=== PATIENT | male | born 1965 | race Caucasian/White ===

== ENCOUNTER 2016-09-28 15:36 | Emergency (ER) | payer BC ==
[2016-09-28 17:07] VITALS: BP 131/64
--- NOTE | 2016-09-28 17:50 | RAD ---
Indication: Jejunostomy tube placement. Contrast was injected into the presumed jejunostomy tube which appears to be within the small bowel. IMPRESSION: Jejunostomy tube appears to be within the small bowel.
--- NOTE | 2016-10-25 11:01 | ED ---
Ugo Chambers Adam, scribed for Ilda Hartmann MD on 09/28/16 at 1600 . GI/ HPI - HPI Summary HPI Summary: Pt is a 51 year old male whose G-tube fell out of his abdomen this morning. He states that he noticed that it was out after he showered. He brought the tube with him and bandaged up the site himself. He denies any pain, irritation, or redness. Pt has had the tube in for 4 months and states that it has never fallen out before. He has it for stomach cancer which he was diagnosed with in 05/2016. He states that he has had numerous abdominal surgeries and has multiple stents. He denies any other PMHx. - History of Current Complaint Chief Complaint: EDGeneral Time Seen by Provider: 09/28/16 15:54 Stated Complaint: FEEDING TUBE FELL OUT Hx Obtained From: Patient Onset/Duration: Started Hours Ago, Atraumatic, Still Present Timing: Constant, Lasting Hours Severity: Mild Current Severity: Mild Pain Intensity: 0 Associated Signs and Symptoms: Positive: Negative Aggravating Factor(s): Nothing Alleviating Factor(s): Nothing - Additional Pertinent History Primary Care Physician: [id number] - Allergy/Home Medications Allergies/Adverse Reactions: Allergies Allergy/AdvReac Type Severity Reaction Status Date / Time No Known Allergies Allergy Verified 09/28/16 15:41 PMH/Surg Hx/FS Hx/Imm Hx Endocrine/Hematology History: Denies: Hx Diabetes Cardiovascular History: Reports: Other Cardiovascular Problems/Disorders - powerport insertion in OR 07/22/16 Denies: Hx Hypertension Respiratory History: Reports: Other Respiratory Problems/Disorders - SOBOE ( recent) GI History: Reports: Hx Ulcer - HX OF GASTRIC ULCER 05/2016 History: Denies: Hx Dialysis, Hx Renal Disease Sensory History: Reports: Hx Contacts or Glasses - reading glasses Denies: Hx Hearing Aid Opthamlomology History: Reports: Hx Contacts or Glasses - reading glasses Neurological History: Reports: Hx Seizures - 8 years ago d/t ALCOHOL Psychiatric History: Reports: Hx Substance Abuse - possible ETOH - Cancer History Cancer Type, Location and Year: Stomach 05/2016 - Surgical History Surgery Procedure, Year, and Place: tonsillectomy as a child. LAPAROTOMY FOR A GASTRIC ULCER AND [id number]-05/2016. FEEDING TUBE- [facility] 07/2016 Hx Anesthesia Reactions: No Infectious Disease History: No Infectious Disease History: Denies: Traveled Outside the [place] in Last 30 Days - Family History Known Family History: Positive: Cardiac Disease Negative: Hypertension, Diabetes - Social History Occupation: Employed Full-time Lives: Alone Alcohol Use: Rare Hx Substance Use: No Substance Use Type: Reports: None Substance Use Comment - Amount & Last Used: rarely Hx Tobacco Use: Yes Smoking Status (MU): Former Smoker Amount Used/How Often: 1/2-1PPD X 10 YEARS Have You Smoked in the Last Year: No Review of Systems Negative: Fever Positive: Other - G-tube fell out Negative: Myalgia Negative: Rash All Other Systems Reviewed And Are Negative: Yes Physical Exam Triage Information Reviewed: Yes Vital Signs On Initial Exam: Initial Vitals Temp Pulse Resp BP Pulse Ox 98.4 F 87 16 113/69 100 09/28/16 15:41 09/28/16 15:41 09/28/16 15:41 09/28/16 15:41 09/28/16 15:41 Vital Signs Reviewed: Yes Appearance: Positive: Well-Appearing, No Pain Distress Skin: Positive: Warm, Skin Color Reflects Adequate Perfusion, Dry Eyes: Positive: EOMI, DANIELLE ENT: Positive: Pharynx normal, TMs normal Neck: Positive: Supple, Nontender Respiratory/Lung Sounds: Positive: Clear to Auscultation, Breath Sounds Present. Negative: Rales, Rhonchi, Wheezes Cardiovascular: Positive: RRR. Negative: Murmur, Rub Abdomen Description: Positive: Nontender, Soft. Negative: Distended, Guarding Bowel Sounds: Positive: Present Musculoskeletal: Positive: Strength/ROM Intact. Negative: Edema Left, Edema Right Neurological: Positive: Sensory/Motor Intact, Alert, Oriented to Person Place, Time, CN Intact II-III Psychiatric: Positive: Affect/Mood Appropriate Procedures - Procedure Summary Procedure Summary: 16:30 - G-tube put in (14, not 16). Diagnostics - Vital Signs Vital Signs Temp Pulse Resp BP Pulse Ox 09/28/16 15:41 98.4 F 87 16 113/69 100 - Laboratory Lab Statement: Any lab studies that have been ordered have been reviewed, and results considered in the medical decision making process. - Radiology ABDOMEN X-RAY Radiology Interpretation Completed By: Radiologist - IMPRESSION: Jejunostomy tube appears to be within the small bowel. GIGU Course/Dx - Diagnoses Provider Diagnoses: G-tube problem Discharge - Discharge Plan Condition: Stable Disposition: HOME Patient Education Materials: Tube Feeding (GEN) Referrals: Bert Pardo MD [Primary Care Provider] - Additional Instructions: Follow up with Dr. Pardo in 2 days. The documentation as recorded by the sreeibUgo stern Adam accurately reflects the service I personally performed and the decisions made by me, Ilda Hartmann MD.
== END 2016-09-28 17:03 | disposition home or self-care (01) ==
LOC: ED 15:36
DX: K94.23 Gastrostomy malfunction (principal); Z43.1 Encounter for attention to gastrostomy; Z87.891 Personal history of nicotine dependence
CPT/HCPCS: 74000; 99282

== ENCOUNTER 2016-10-28 18:25 | Emergency (ER) | payer BC, MEDICAID ==
[2016-10-28 18:32] VITALS: BP 122/79
[2016-10-28] MEDS ORDERED: Morphine INJ* 10 MG/ML 1 ML SYRINGE IM ONE (20:44)
--- NOTE | 2016-10-30 15:28 | ED ---
Sendy Chambers Alok, scribed for Melvin Hightower MD on 10/28/16 at 2027 . GI/ HPI - HPI Summary HPI Summary: 51 y/o male present to the ED due to his G-tube falling out earlier today at 1730. Pt states tube was installed one month ago by Dr. Pardo. Pt denies any dizziness, lightheadedness, or chance of passing out. PMHx includes stomach cancer. Pt has no other medical complaints at this time. - History of Current Complaint Chief Complaint: EDGeneral Time Seen by Provider: 10/28/16 19:46 Stated Complaint: NEEDS FEED TUBE PUT BACK IN Hx Obtained From: Patient Onset/Duration: Started Hours Ago, Atraumatic, Still Present Timing: Constant Severity: Moderate Current Severity: Moderate Pain Intensity: 0 Associated Signs and Symptoms: Negative: Dizziness, Lightheadedness Aggravating Factor(s): Nothing Alleviating Factor(s): Nothing - Additional Pertinent History Primary Care Physician: JENA - Allergy/Home Medications Allergies/Adverse Reactions: Allergies Allergy/AdvReac Type Severity Reaction Status Date / Time No Known Allergies Allergy Verified 09/28/16 15:41 PMH/Surg Hx/FS Hx/Imm Hx Endocrine/Hematology History: Denies: Hx Diabetes Cardiovascular History: Reports: Other Cardiovascular Problems/Disorders - powerport insertion in OR 07/22/16 Denies: Hx Hypertension Respiratory History: Reports: Other Respiratory Problems/Disorders - SOBOE ( recent) GI History: Reports: Hx Ulcer - HX OF GASTRIC ULCER 05/2016 History: Denies: Hx Dialysis, Hx Renal Disease Sensory History: Reports: Hx Contacts or Glasses - reading glasses Denies: Hx Hearing Aid Opthamlomology History: Reports: Hx Contacts or Glasses - reading glasses Neurological History: Reports: Hx Seizures - 8 years ago d/t ALCOHOL Psychiatric History: Reports: Hx Substance Abuse - possible ETOH - Cancer History Cancer Type, Location and Year: Stomach 05/2016 - Surgical History Surgery Procedure, Year, and Place: tonsillectomy as a child. LAPAROTOMY FOR A GASTRIC ULCER AND [id number]-05/2016. FEEDING TUBE- [facility]- 07/2016 Hx Anesthesia Reactions: No Infectious Disease History: No Infectious Disease History: Denies: Traveled Outside the [place] in Last 30 Days - Family History Known Family History: Positive: Cardiac Disease Negative: Hypertension, Diabetes - Social History Occupation: Employed Full-time Lives: With Family - Brother and Sister Alcohol Use: Rare Alcohol Amount: 2-3 times per week Hx Substance Use: No Substance Use Type: Reports: None Substance Use Comment - Amount & Last Used: rarely Hx Tobacco Use: Yes Smoking Status (MU): Former Smoker Amount Used/How Often: 1/2-1PPD X 10 YEARS Have You Smoked in the Last Year: No Review of Systems Negative: Fever, Chills Negative: Erythema Negative: Sore Throat Negative: Chest Pain Negative: Shortness Of Breath, Cough Negative: Abdominal Pain, Vomiting, Nausea Negative: dysuria, hematuria Negative: Myalgia, Edema Negative: Rash Neurological: Other - Negative: Dizziness All Other Systems Reviewed And Are Negative: Yes Physical Exam - Summary Physical Exam Summary: Constitutional: Well-developed, Well-nourished, Alert. (-) Distressed Skin: Warm, Dry HENT: Normocephalic; Atraumatic Eyes: Conjunctiva normal Neck: Musculoskeletal ROM normal neck. (-) JVD, (-) Stridor, (-) Tracheal deviation Cardio: Rhythm regular, rate normal, Heart sounds normal; Intact distal pulses; The pedal pulses are 2+ and symmetric. Radial pulses are 2+ and symmetric. (-) Murmur Pulmonary/Chest wall: Effort normal. (-) Respiratory distress, (-) Wheezes, (-) Rales Abd: Soft, (-) Tenderness, (-) Distension, (-) Guarding, (-) Rebound Musculoskeletal: (-) Edema Lymph: (-) Cervical adenopathy Neuro: Alert, Oriented x3 Psych: Mood and affect Normal Triage Information Reviewed: Yes Vital Signs On Initial Exam: Initial Vitals Temp Pulse Resp BP Pulse Ox 99.0 F 85 20 122/79 100 10/28/16 18:27 10/28/16 18:27 10/28/16 18:27 10/28/16 18:27 10/28/16 18:27 Vital Signs Reviewed: Yes Procedures - Additional Procedures Additional Procedures: gastric tube replacement - 22F, 20 F FOLEYS UNABLE TO BE PLACED. GUM BOUGIE UTILIZED MILD DILATOR, PATIENT TOLERATED THIS WELL. STERILE PROCEDURES FOLLOWED. 18 F PENN SUCCESSFULLY PLACED, POSITIVE GASTRIC CONTENTS ASPIRATED, FLUSHES EASILY, AIR INJECTED AND GASTRIC SOUNDS AUSCULTATED Diagnostics - Vital Signs Vital Signs Temp Pulse Resp BP Pulse Ox 10/28/16 18:27 99.0 F 85 20 122/79 100 - Laboratory Lab Statement: Any lab studies that have been ordered have been reviewed, and results considered in the medical decision making process. GIGU Course/Dx - Diagnoses Provider Diagnoses: G-Tube replacement Discharge - Discharge Plan Condition: Stable Disposition: HOME Referrals: Bert Pardo MD [Primary Care Provider] - 2 Days Additional Instructions: Please follow up with Dr. Pardo in one or two days The documentation as recorded by the Sendy kent Alok accurately reflects the service I personally performed and the decisions made by , Melvin Hightower MD.
== END 2016-10-28 21:08 | disposition home or self-care (01) ==
LOC: ED 18:25
DX: Z93.1 Gastrostomy status (principal)
CPT/HCPCS: 96372; 99281; J2270

== ENCOUNTER 2018-02-13 15:05 | Inpatient (IN) | payer OTHER ==
[2018-02-13 16:16] LABS: ABS Basophils 0 10^3/ul (0-0.2); ABS Eosinophils 0 10^3/ul (0-0.6); ABS Lymphocytes 0.3 10^3/ul (1.0-4.8); ABS Monocytes 0.3 10^3/ul (0-0.8); ABS Neutrophils 5.5 10^3/ul (1.5-7.7); ABS Nucleated RBC 0 10^3/ul; Eosinophil % 0.1 % (0-6); Hematocrit 35 % (42-52); Hemoglobin 11.1 g/dl (14.0-18.0); Lymphocyte % 4.4 % (25-47); Mean Corpuscular HGB Conc 32 g/dl (31-36); Mean Corpuscular Hemoglobin 24 pg (27-31); Mean Corpuscular Volume 74 fL (80-94); Mean Platelet Volume 6.3 um3 (7.4-10.4); Nucleated Red Blood Cells % 0.2; Platelet Count 481 10^3/ul (150-450); Red Blood Count 4.69 10^6/ul (4.00-5.40); Red Cell Distribution Width 22 % (10.5-15); White Blood Count 6.1 10^3/ul (3.5-10.8)
--- NOTE | 2018-02-13 16:24 | RAD ---
INDICATION: Constipation COMPARISON: [facility] September 28, 2016; CT September 19, 2017 TECHNIQUE: A single view of the abdomen is submitted. FINDINGS: Bones: There are no acute bony findings. Soft tissues: There is a biliary stent.. Bowel gas pattern: There is mild gaseous distention of the colon. There is flocculent material in the left upper quadrant likely representing stool in a distended stomach. This is been noted previously. Calcifications: There are no abnormal calcifications. Other: None IMPRESSION: DISTENDED DEBRIS-FILLED STOMACH. MILD GASEOUS DISTENTION
[2018-02-13 16:30] LABS: EGFR Non-African American 121.5 (>60)
[2018-02-13] MEDS ORDERED: Iohexol 300* (CONTRAST) 10 ML SDV IV ONE (16:49)
--- NOTE | 2018-02-13 17:16 | ED ---
Abdominal Pain/Male - HPI Summary HPI Summary: Pt. is a 52-year-old male who presents to emergency department for constipation , abdominal bloating/pain, generalized weakness and feet swelling 5 days. Pt. has gastric cancer and receives chemo. Patient is followed by Dr. Pardo. Patient is on chronic narcotics for pain but states he takes daily stool softeners and laxatives. Admits to intermittent vomiting which he states is not unusual for him. Denies associated symptoms of fever, chills, cough, shortness of breath, chest pain. Patient states he was passing gas yesterday but is not today. Also notes difficulty urinating. Symptoms are moderate in severity. No current modifying factors. 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 Pain Intensity: 9 - Allergies/Home Medications Allergies/Adverse Reactions: Allergies Allergy/AdvReac Type Severity Reaction Status Date / Time No Known Allergies Allergy Verified 02/13/18 15:11 PMH/Surg Hx/FS Hx/Imm Hx Previously Healthy: Yes Endocrine/Hematology History: Denies: Hx Diabetes Cardiovascular History: Reports: Other Cardiovascular Problems/Disorders - powerport insertion in OR 07/22/16 Denies: Hx Hypertension Respiratory History: Reports: Other Respiratory Problems/Disorders - SOBOE ( recent) GI History: Reports: Hx Ulcer - HX OF GASTRIC ULCER 05/2016 History: Denies: Hx Dialysis, Hx Renal Disease Sensory History: Reports: Hx Contacts or Glasses - reading glasses Denies: Hx Hearing Aid Opthamlomology History: Reports: Hx Contacts or Glasses - reading glasses Neurological History: Reports: Hx Seizures - 8 years ago d/t ALCOHOL Psychiatric History: Reports: Hx Substance Abuse - possible ETOH - Cancer History Cancer Type, Location and Year: Stomach [place]-05/2016 - Surgical History Surgery Procedure, Year, and Place: TONSILLECTOMY. LAPAROTOMY FOR A GASTRIC ULCER AND H-[id number]-05/2016. FEEDING TUBE- [facility]- 07/2016 Hx Anesthesia Reactions: No Infectious Disease History: No Infectious Disease History: Denies: Traveled Outside the [place] in Last 30 Days - Family History Known Family History: Positive: Cardiac Disease Negative: Hypertension, Diabetes - Social History Alcohol Use: Weekly Alcohol Amount: 2-3 times per week Hx Substance Use: No Substance Use Type: Reports: None Substance Use Comment - Amount & Last Used: occasionally Hx Tobacco Use: Yes Smoking Status (MU): Former Smoker Amount Used/How Often: 1/2-1PPD X 10 YEARS Have You Smoked in the Last Year: No Review of Systems Constitutional: Negative Negative: Fever, Chills Eyes: Negative ENT: Negative Cardiovascular: Negative Negative: Palpitations, Chest Pain Respiratory: Negative Negative: Shortness Of Breath, Cough Positive: Abdominal Pain, Other - Constipation. Negative: Vomiting, Diarrhea, Nausea Positive: urgency Positive: Other - Bilateral feet edema Skin: Negative Positive: Weakness - generalized. Negative: Headache, Paresthesia, Numbness, Syncope All Other Systems Reviewed And Are Negative: Yes Physical Exam Triage Information Reviewed: Yes Vital Signs On Initial Exam: Initial Vitals Temp Pulse Resp BP Pulse Ox 99.6 F 100 16 135/94 99 02/13/18 15:09 02/13/18 15:09 02/13/18 15:09 02/13/18 15:09 02/13/18 15:09 Vital Signs Reviewed: Yes Appearance: Positive: Thin - Pt. lying in bed in NAD. Malnourished appearing. Brother present. Skin: Positive: Warm, Dry Head/Face: Positive: Normal Head/Face Inspection Eyes: Positive: Normal Neck: Positive: Supple. Negative: Nuchal Rigidity Respiratory/Lung Sounds: Positive: Clear to Auscultation, Breath Sounds Present Cardiovascular: Positive: Normal, RRR Abdomen Description: Positive: Other: - Abdomen is distended and diffusely tender throughout. Numerous incisional scars noted. Rectal exam performed with tech. No stool noted in rectal vault. Musculoskeletal: Positive: Other - Moderate edema noted to bilateral feet. No erythema or wounds. Palpable pulses. No calf swelling. Neurological: Positive: Normal, CN Intact II-III Psychiatric: Positive: Affect/Mood Appropriate Diagnostics - Vital Signs Vital Signs Temp Pulse Resp BP Pulse Ox 02/13/18 15:29 93 144/106 98 02/13/18 15:09 99.6 F 100 16 135/94 99 - Laboratory Lab Results: Lab Results 02/13/18 02/13/18 Range/Units 15:37 15:37 WBC 6.1 (3.5-10.8) 10^3/ul RBC 4.69 (4.00-5.40) 10^6/ul Hgb 11.1 L (14.0-18.0) g/dl Hct 35 L (42-52) % MCV 74 L (80-94) fL MCH 24 L (27-31) pg MCHC 32 (31-36) g/dl RDW 22 H (10.5-15) % Plt Count 481 H (150-450) 10^3/ul MPV 6.3 L (7.4-10.4) um3 Neut % (Auto) 89.9 H (38-83) % Lymph % (Auto) 4.4 L (25-47) % [place] % (Auto) 5.3 (0-7) % Eos % (Auto) 0.1 (0-6) % Baso % (Auto) 0.3 (0-2) % Absolute Neuts (auto) 5.5 (1.5-7.7) 10^3/ul Absolute Lymphs (auto) 0.3 L (1.0-4.8) 10^3/ul Absolute Monos (auto) 0.3 (0-0.8) 10^3/ul Absolute Eos (auto) 0 (0-0.6) 10^3/ul Absolute Basos (auto) 0 (0-0.2) 10^3/ul Absolute Nucleated RBC 0 10^3/ul Nucleated RBC % 0.2 Sodium 133 L (135-145) mmol/L Potassium 4.4 (3.5-5.0) mmol/L Chloride 96 L (101-111) mmol/L Carbon Dioxide 27 (22-32) mmol/L Anion Gap 10 (2-11) mmol/L BUN 13 (6-24) mg/dL Creatinine 0.68 (0.67-1.17) mg/dL Est GFR ( Amer) 147.0 (>60) Est GFR (Non-Af Amer) 121.5 (>60) BUN/Creatinine Ratio 19.1 (8-20) Glucose 112 H (70-100) mg/dL Calcium 9.3 (8.6-10.3) mg/dL Total Bilirubin 0.50 (0.2-1.0) mg/dL AST 21 (13-39) U/L ALT 11 (7-52) U/L Alkaline Phosphatase 115 H (34-104) U/L Total Protein 6.9 (6.4-8.9) g/dL Albumin 3.3 (3.2-5.2) g/dL Globulin 3.6 (2-4) g/dL Albumin/Globulin Ratio 0.9 L (1-3) Result Diagrams: 02/13/18 15:37 02/13/18 15:37 Lab Statement: Any lab studies that have been ordered have been reviewed, and results considered in the medical decision making process. Abdominal Pain Fem Course/Dx - Course Course Of Treatment: Pt. presenting for constipation, abd. pain/bloating, and feet swelling. Temp 99.6F, HR 100bpm, BP 135/94. Will obtain basic labs, urine and abd. xray. No stool impaction noted on exam. Xray reviewed by myself and Dr. Claros and shows dilated bowels without constipation. [place] for possible obstruction or other etiology for pt.'s pain and bloating. Will obtain CT scan. Labs are at pt.'s baseline. Pt. will be signed out to Hazel Figueroa PA-C for CT results and appropriate disposition. - Diagnoses Differential Diagnosis/HQI/PQRI: Bowel Obstruction, Constipation, Urinary Tract Infection Provider Diagnoses: Abdominal bloating, Constipation Discharge - Sign-Out/Discharge Documenting (check all that apply): Sign-Out Patient Signing out patient TO: Hazel Figueroa - Discharge Plan Referrals: Bert Pardo MD [Primary Care Provider] -
--- NOTE | 2018-02-13 19:13 | RAD ---
INDICATION: Constipation. Gastric cancer COMPARISON: [facility] February 13, 2018; CT abdomen pelvis September 19, 2017 TECHNIQUE: Axial source images were obtained from the hemidiaphragms to the symphysis pubis following administration of oral and intravenous contrast. 85 mL Omnipaque 300 was utilized. Coronal and sagittal reconstructed images were acquired. Lung bases: There is airspace disease left lung base with air bronchograms consistent with infiltrate or atelectasis. There are small bilateral pleural effusions left greater than right. Liver: The liver is normal in size. There are no masses. There is no ductal dilatation. There is pneumobilia, unchanged. Gallbladder: There are no calcified gallstones. There is no evidence of wall thickening or pericholecystic fluid. Spleen: The spleen is normal in size. There are no masses. Pancreas: The pancreas appears atrophic. Adrenal glands: There is no evidence of adrenal mass. Kidneys: The kidneys are normal in size and position. There are prompt nephrograms and there is prompt excretion bilaterally. There are no renal parenchymal masses. There is no evidence of nephrolithiasis. Adenopathy: There is omental cake formation anterior to the stomach and transverse colon which is slightly more conspicuous than noted previously. Fluid collections: There is tense ascites with increased fluid Vessels:There are no significant atherosclerotic changes involving the aorta. There is no focal aneurysm. The iliac vessels are normal in caliber. The IVC appears normal. GI tract: The stomach is distended and debris-filled. The patient may benefit from decompression. The stomach was also distended previously although it is slightly more pronounced on the current exam. There is mild thickening of the gastric antrum, unchanged There is a biliary stent unchanged in position. The small bowel is normal in caliber. The colon is mildly distended and air-filled Pelvic organs: There is limited evaluation the prostate. No abnormalities are seen Bladder: There are no bladder masses. Abdominal and pelvic soft tissues: The extraperitoneal abdominal and pelvic soft tissues appear normal.. Osseous structures: There are no acute osseous findings. Other: None IMPRESSION: 1. Consolidative change left lung base with air bronchograms. Bilateral pleural effusions. 2. Biliary stenting with pneumobilia, unchanged. 3. Tense ascites. There is an interval increase the amount of ascites. 4. Omental cake formation slightly more conspicuous than noted previously. 5. Distended stomach slightly more pronounced. Mild thickening of the gastric antrum, unchanged. Air-filled colon. No colonic obstructive findings.
[2018-02-13] MEDS ORDERED: Ondansetron INJ* 2 MG/ML VIAL IV ONE (19:31)
[2018-02-13] MEDS ORDERED: Morphine VIAL* 4 MG/ML VIAL (1 ml vial) IV ONE (19:31)
--- NOTE | 2018-02-13 20:40 | PN ---
Progress Note - Progress Note Date of Service: 02/13/18 Note: Signed out by ALEX Vela HPI: (Dictated by Pato Echavarria) Pt. is a 52-year-old male who presents to emergency department for constipation , abdominal bloating/pain, generalized weakness and feet swelling 5 days. Pt. has gastric cancer and receives chemo. Patient is followed by Dr. Pardo. Patient is on chronic narcotics for pain but states he takes daily stool softeners and laxatives. Admits to intermittent vomiting which he states is not unusual for him. Denies associated symptoms of fever, chills, cough, shortness of breath, chest pain. Patient states he was passing gas yesterday but is not today. Also notes difficulty urinating. Symptoms are moderate in severity. No current modifying factors. Course of treatment: Upon sign out, awaiting CT abdomen/pelvis. Impression: IMPRESSION: 1. Consolidative change left lung base with air bronchograms. Bilateral pleural effusions. 2. Biliary stenting with pneumobilia, unchanged. 3. Tense ascites. There is an interval increase the amount of ascites. 4. Omental cake formation slightly more conspicuous than noted previously. 5. Distended stomach slightly more pronounced. Mild thickening of the gastric antrum, unchanged. Air-filled colon. No colonic obstructive findings. Discussed case with Dr. White who recommends admission if no evidence of previous metastasis. Discussed with patient who states he is unaware of any metastasis and believes the CA is contained "in the stomach." Discussed care with Dr. Ortiz, hospitalist, who will admit for pain control with likely tap of the abdomen (ascites) tomorrow morning with cytology review. Disposition: ADMITTED TO [facility] Condition: Fair
--- NOTE | 2018-02-13 20:43 | HP ---
H&P (Free Text) History and Physical: PCP: Buster Pardo MD Date/Time: 02/13/2018 2100 CC: abdominal pain & distention HPI: Mr Matos is a 52YO male HX gastric CA diagnosed 2015 who completed a 5 week coarse of combined chemo-/radioTX last Tuesday. On he began having increased abdominal distention/pressure & bloating which gradually increased to moderately severe today prompting presentation for evaluation. He had a small watery stool today, but prior to that had not had any bowel output for 4 days. He also developed N/V today. There was no bloody or black content to either. He states his weight is stable although his appetite has been decreased over the last few days. He denies F/C, sweats, SOB, chest pain, or other issues. PMedHx gastric CA DX'd 2016 : completed 5wk combined chemo-/radioTX last Tue gastric ulcers upper GI bleed 2nd ulcers anemia 2nd above hepatic abscess alcoholism w/ withdrawal seizures Ambulatory Orders Omeprazole CAP* [Prilosec CAP* 20 MG] 20 mg PO DAILY 07/21/16 Naproxen Sodium [Aleve] 220 mg PO DAILY PRN 09/22/17 traZODone TAB* [Desyrel TAB*] 50 mg PO BEDTIME PRN 09/22/17 Polyethylene Glycol 3350* [Miralax*] 17 gm PO DAILY PRN #30 packet MDD 1 packet 02/01/18 Docusate CAP* [Colace Cap*] 100 mg PO BID 02/13/18 Gabapentin CAP(*) [Neurontin 300 CAP(*)] 300 mg PO BID 02/13/18 LORazepam TAB(*) [Ativan 0.5 MG TAB (*)] 0.5 mg PO Q6H PRN 02/13/18 Meclizine TAB* [Antivert 12.5 TAB*] 12.5 mg PO Q6HR PRN 02/13/18 Potassium Chloride 20 meq PO DAILY 02/13/18 Senna TAB* [Senokot TAB*] 2 tab PO BEDTIME 02/13/18 Vitamin B Complex TAB* [B Complex-50*] 1 tab PO DAILY 02/13/18 oxyCODONE ORAL.SOLN* [Oxycodone ORAL.SOLN 5 mg/5 ml *] 5 ml PO Q4HR PRN Allergies No Known Allergies Allergy (Verified 02/13/18 15:11) PSurgHx gastric ulcer oversewing port placement biliary stenting tonsillectomy SocHx: former smoker quit 10 years ago, HX alcoholism w/ withdrawal seizures continues with 1-2 drinks 2x/wk, occasional marijuana; lives alone; formerly worked construction; full code status FamHx: only other cancer is an aunt with breast CA ROS: as above, otherwise reviewed and all were negative vitals: Vital Signs Temp 37.6 C 02/13/18 15:09 Pulse 95 02/13/18 18:00 Resp 15 02/13/18 19:39 BP 143/107 02/13/18 15:59 Pulse Ox 97 02/13/18 18:00 Intake & Output 02/12/18 02/13/18 02/13/18 23:59 11:59 23:59 Weight 63.503 kg Constitutional: NAD, normally developed, cachectic white male HEENM: atraumatic; sclera/conjunctiva: anicteric/clear; hearing: clinically intact; oropharynx: clear, mucosa moist Neck: soft tissue: non-tender; thyroid: normal Pulmonary: clear to auscultation bilaterally, good aeration, no accessory muscle use CV: RR/RR, normal S1S2, no carotid bruit, no jugular venous distention, 2+ B DP/ PT, no edema Abdominal: soft, tense & moderately distended, diffusely uncomfortable without focal tenderness, no rebound/guarding/rigidity, normoactive bowel sounds, no hepatosplenomegaly or masses, no costovertebral angle tenderness Musculoskeletal: general: grossly intact, non-tender Integumental: normal appearance and texture of exposed skin Psychiatric orientation: AA&O to PPS affect: calm mood: cooperative eye contact: good content: reliable responses: timely insight: good Testing: Lab Results 02/13/18 02/13/18 Range/Units 15:37 15:37 WBC 6.1 (3.5-10.8) 10^3/ul RBC 4.69 (4.00-5.40) 10^6/ul Hgb 11.1 L (14.0-18.0) g/dl Hct 35 L (42-52) % MCV 74 L (80-94) fL MCH 24 L (27-31) pg MCHC 32 (31-36) g/dl RDW 22 H (10.5-15) % Plt Count 481 H (150-450) 10^3/ul MPV 6.3 L (7.4-10.4) um3 Neut % (Auto) 89.9 H (38-83) % Lymph % (Auto) 4.4 L (25-47) % [place] % (Auto) 5.3 (0-7) % Eos % (Auto) 0.1 (0-6) % Baso % (Auto) 0.3 (0-2) % Absolute Neuts (auto) 5.5 (1.5-7.7) 10^3/ul Absolute Lymphs (auto) 0.3 L (1.0-4.8) 10^3/ul Absolute Monos (auto) 0.3 (0-0.8) 10^3/ul Absolute Eos (auto) 0 (0-0.6) 10^3/ul Absolute Basos (auto) 0 (0-0.2) 10^3/ul Absolute Nucleated RBC 0 10^3/ul Nucleated RBC % 0.2 Sodium 133 L (135-145) mmol/L Potassium 4.4 (3.5-5.0) mmol/L Chloride 96 L (101-111) mmol/L Carbon Dioxide 27 (22-32) mmol/L Anion Gap 10 (2-11) mmol/L BUN 13 (6-24) mg/dL Creatinine 0.68 (0.67-1.17) mg/dL Est GFR ( Amer) 147.0 (>60) Est GFR (Non-Af Amer) 121.5 (>60) BUN/Creatinine Ratio 19.1 (8-20) Glucose 112 H (70-100) mg/dL Calcium 9.3 (8.6-10.3) mg/dL Total Bilirubin 0.50 (0.2-1.0) mg/dL AST 21 (13-39) U/L ALT 11 (7-52) U/L Alkaline Phosphatase 115 H (34-104) U/L Total Protein 6.9 (6.4-8.9) g/dL Albumin 3.3 (3.2-5.2) g/dL Globulin 3.6 (2-4) g/dL Albumin/Globulin Ratio 0.9 L (1-3) XRY abdomen, personally reviewed: IMPRESSION: DISTENDED DEBRIS-FILLED STOMACH. MILD GASEOUS DISTENTION CT abd/pel WO, personally reviewed: IMPRESSION: 1. Consolidative change left lung base with air bronchograms. Bilateral pleural effusions. 2. Biliary stenting with pneumobilia, unchanged. 3. Tense ascites. There is an interval increase the amount of ascites. 4. Omental cake formation slightly more conspicuous than noted previously. 5. Distended stomach slightly more pronounced. Mild thickening of the gastric antrum, unchanged. Air-filled colon. No colonic obstructive findings. Impression: 52M HX gastric CA diagnosed 2016 who completed 5wk course of chemo-/ radioTX last Tuesday presents with new tense ascites and omental caking DIAGNOSIS & PLAN Primary metastatic gastric CA : admit for pain control & further evaluation of new CT findings : admit to oncology service : arrange surgical evaluation for paracentesis in AM : Steven Blas MD surgery consulted & agrees to arrange paracentesis in AM : check INR : NG for gastric decompression and short-term improvement in abdominal bloating : supportive care Secondary alcoholism w/ HX withdrawal seizures : ongoing alcohol consumption : WAM protocol w/ prophylactic taper Admission Rational: inpatient for further work up of newly metastatic gastric CA DVTp: SCDs, heparin X1 tonight anticipating paracentesis in AM Code Status: full HCP: brotherCésar
[2018-02-13] MEDS ORDERED: Acetaminophen TAB* 325 MG PO PRN (21:50)
[2018-02-13] MEDS ORDERED: LORazepam INJ* 2 MG/ML 1 ML VIAL IV PRN (21:50)
[2018-02-13] MEDS ORDERED: Albuterol 2.5 MG/3 ML NEB.SOL* (0.083%) INH PRN (21:50)
[2018-02-13] MEDS ORDERED: Ondansetron ODT TAB* 4 MG PO PRN (21:52)
[2018-02-13] MEDS ORDERED: Thiamine IV* 100 MG/ML 2 ML VIAL IM ONE (21:53)
[2018-02-13] MEDS ORDERED: LORazepam INJ* 2 MG/ML 1 ML VIAL IV PUSH SCH (22:00)
[2018-02-13 22:15] LABS: INR 0.98 (0.77-1.02)
[2018-02-13] MEDS: Morphine VIAL* 4 MG/ML VIAL (1 ml vial) IV PRN (23:06)
[2018-02-13] MEDS: LORazepam INJ* 2 MG/ML 1 ML VIAL IV SCH (23:07)
[2018-02-13] MEDS: Pantoprazole IV* 40 MG IV SCH (23:07)
[2018-02-14] MEDS: Folic Acid TAB* 1 MG PO SCH ×2 (03:22→11:25)
[2018-02-14] MEDS: Thiamine TAB* 100 MG TAB PO SCH ×2 (03:23→11:26)
[2018-02-14] MEDS: Multivitamins/Minerals TAB PO SCH ×2 (03:23→11:26)
[2018-02-14] MEDS: Morphine VIAL* 4 MG/ML VIAL (1 ml vial) IV PRN ×4 (05:09→22:36)
[2018-02-14] MEDS: LORazepam INJ* 2 MG/ML 1 ML VIAL IV SCH ×2 (05:10→18:03)
--- NOTE | 2018-02-14 07:48 | RAD ---
INDICATION: NG tube placement. COMPARISON: Comparison is made with a prior study from July 22, 2016. TECHNIQUE: A portable view of the chest was obtained. FINDINGS: Cardiac and mediastinal contours appear to be within normal limits. There is a power port central venous catheter entering on the right side. The catheter tip projects over the right atrium. There is a nasogastric tube which demonstrates normal course. The catheter tip projects in the left upper quadrant. The lungs are underinflated. There is a linear infiltrate at the left lung base most consistent with atelectasis. IMPRESSION: 1. STATUS POST NASOGASTRIC TUBE PLACEMENT. 2. LOW LUNG VOLUMES, LEFT BASILAR SUBSEGMENTAL ATELECTASIS.
--- NOTE | 2018-02-14 11:37 | PROCNOTE ---
Hematology/Oncology Procedure Hematology/Oncology Procedure Note: Paracentesis: Informed consent obtained, procedure reviewed with pt. Time out performed per protocol. Anesthesia 2% lidocaine, approx. 1 mL, administered with good effect. Therapeutic and diagnostic paracentesis performed to left lower quadrant without obvious complications. Pt. tolerated well. Straw color fluid. Biopsy sent.
--- NOTE | 2018-02-14 11:46 | PN ---
Progress Note - Progress Note Date of Service: 02/14/18 SOAP: Subjective: []Maybe a little better than yesterday. NG tube placed with minimal output. Hasn't had a BM in several days. Very poor PO intake. Pressure in abd. is the worst and this is painful. Notes swelling in ankles as well. No SOB, chest pain, or pressure. Medications: Acetaminophen (Tylenol Tab*) 650 mg PO Q6H PRN PRN Reason: FEVER/PAIN Albuterol (Ventolin 2.5 Mg/3 Ml Neb.Cintia*) 2.5 mg INH Q2H PRN PRN Reason: SOB/WHEEZING Folic Acid (Folvite Tab*) 1 mg PO DAILY [facility] Last Admin: 02/14/18 11:25 Dose: Not Given Heparin Sodium (Porcine) (Heparin Vial(*)) 5,000 units SUBCUT ED ONCE ONE Stop: 02/14/18 21:52 Lorazepam (Ativan Inj*) 0.5 mg IV BEDTIME PRN PRN Reason: SLEEP Lorazepam (Ativan Inj*) 0 - 6 mg IV PUSH .PER [facility] PROTOCOL GRAZYNA; Protocol Lorazepam (Ativan Inj*) 1 mg IV Q8H GRAZYNA; Taper Stop: 02/16/18 17:59 Last Admin: 02/14/18 05:10 Dose: 1 mg Morphine Sulfate (Morphine Vial*) 2 mg IV Q4H PRN PRN Reason: PAIN Last Admin: 02/14/18 05:09 Dose: 2 mg Multivitamins/Minerals (Theragran/Minerals Tab*) 1 tab PO DAILY [facility] Last Admin: 02/14/18 11:26 Dose: Not Given Ondansetron HCl (Zofran Odt Tab*) 4 mg PO Q6H PRN PRN Reason: n/v Pantoprazole Sodium (Protonix Iv*) 40 mg IV DAILY [facility] Last Admin: 02/13/18 23:07 Dose: 40 mg Thiamine HCl (Vitamin B-1 Tab*) 100 mg PO DAILY [facility] Last Admin: 02/14/18 11:26 Dose: Not Given Objective: [] Vital Signs Temp Pulse Resp BP Pulse Ox 98.1 F 80 15 139/90 100 02/14/18 03:18 02/14/18 03:18 02/14/18 07:58 02/14/18 03:18 02/14/18 03:18 A&Ox3, EOMI, PERRLA, involved in plan of care HRR, S1S2 LS clear bilat. +BS, abd. soft, distended with +fluid wave, tender +2 bilat. ankle edema Laboratory Results - last 24 hr 02/13/18 02/13/18 02/13/18 15:37 15:37 15:37 WBC 6.1 RBC 4.69 Hgb 11.1 L Hct 35 L MCV 74 L MCH 24 L MCHC 32 RDW 22 H Plt Count 481 H MPV 6.3 L Neut % (Auto) 89.9 H Lymph % (Auto) 4.4 L [place] % (Auto) 5.3 Eos % (Auto) 0.1 Baso % (Auto) 0.3 Absolute Neuts (auto) 5.5 Absolute Lymphs (auto) 0.3 L Absolute Monos (auto) 0.3 Absolute Eos (auto) 0 Absolute Basos (auto) 0 Absolute Nucleated RBC 0 Nucleated RBC % 0.2 INR (Anticoag Therapy) 0.98 Sodium 133 L Potassium 4.4 Chloride 96 L Carbon Dioxide 27 Anion Gap 10 BUN 13 Creatinine 0.68 Est GFR ( Amer) 147.0 Est GFR (Non-Af Amer) 121.5 BUN/Creatinine Ratio 19.1 Glucose 112 H Calcium 9.3 Total Bilirubin 0.50 AST 21 ALT 11 Alkaline Phosphatase 115 H Total Protein 6.9 Albumin 3.3 Globulin 3.6 Albumin/Globulin Ratio 0.9 L Assessment: []52 yo male with metastatic gastric cancer admitted with severe abd. pain found to have an ileus and new ascites. Plan: []1. Paracentesis today: will send fluid for cell count, OK to drain 2 L 2. Ileus: does not appear to be an overt blockage, D/C NG tube as no output and no improvement in symptoms overnight, can start with clear diet and follow bowels, add miralax 3. Cancer: further plan of care dependent on findings of ascites, I am concerned for progression despite recent salvage therapy. If this is the case would likely transition to hospice on d/c due to declining performance status and limitations in tx. options.
[2018-02-14] MEDS: Pantoprazole IV* 40 MG IV SCH (12:01)
[2018-02-14] MEDS: Polyethylene Glycol 3350* 17 GM PACKET PO SCH (18:10)
[2018-02-14] MEDS ORDERED: Heparin VIAL(*) 5000 UNITS/ML VIAL (FIVE THOUSAND) SUBCUT ONE (21:51)
[2018-02-15] MEDS: LORazepam INJ* 2 MG/ML 1 ML VIAL IV SCH (01:57)
[2018-02-15] MEDS: Morphine VIAL* 4 MG/ML VIAL (1 ml vial) IV PRN ×2 (03:15→07:45)
--- NOTE | 2018-02-15 10:34 | PN ---
Progress Note - Progress Note Date of Service: 02/15/18 SOAP: Subjective: []Feels better than yesterday. Less pressure in abdomen. Pain controlled, though remains an issue. Had explosive diarrhea today. No new concerns. Medications: Acetaminophen (Tylenol Tab*) 650 mg PO Q6H PRN PRN Reason: FEVER/PAIN Albuterol (Ventolin 2.5 Mg/3 Ml Neb.Cintia*) 2.5 mg INH Q2H PRN PRN Reason: SOB/WHEEZING Folic Acid (Folvite Tab*) 1 mg PO DAILY [facility] Last Admin: 02/14/18 11:25 Dose: Not Given Lorazepam (Ativan Inj*) 0.5 mg IV BEDTIME PRN PRN Reason: SLEEP Lorazepam (Ativan Inj*) 1 mg IV Q12H [facility]; Taper Stop: 02/16/18 17:59 Last Admin: 02/15/18 01:57 Dose: 1 mg Morphine Sulfate (Morphine Vial*) 2 mg IV Q4H PRN PRN Reason: PAIN Last Admin: 02/15/18 07:45 Dose: 2 mg Multivitamins/Minerals (Theragran/Minerals Tab*) 1 tab PO DAILY [facility] Last Admin: 02/14/18 11:26 Dose: Not Given Ondansetron HCl (Zofran Odt Tab*) 4 mg PO Q6H PRN PRN Reason: n/v Pantoprazole Sodium (Protonix Iv*) 40 mg IV DAILY [facility] Last Admin: 02/14/18 12:01 Dose: 40 mg Polyethylene Glycol/Electrolytes (Miralax*) 17 gm PO DAILY [facility] Last Admin: 02/14/18 18:10 Dose: 17 gm Thiamine HCl (Vitamin B-1 Tab*) 100 mg PO DAILY [facility] Last Admin: 02/14/18 11:26 Dose: Not Given Objective: [] Vital Signs Temp Pulse Resp BP Pulse Ox 98.3 F 77 16 118/85 98 02/15/18 03:21 02/15/18 03:21 02/15/18 07:45 02/15/18 03:21 02/15/18 03:21 A&Ox3, EOMI, ANTONIO Cachetic with peripheral edema, concerning for anasarca HRR, S1S2 LS clear +BS, abd. soft, distended, +ascites, slightly tender +2 bilat edema to ankles Laboratory Results - last 24 hr 02/14/18 11:30 Fluid Source Peritonial fluid Fluid Volume 7.5 Fluid Color Yellow Fluid Appearance Clear Fluid WBC 181 Fluid RBC 68 Fluid Tot Cell Count 100 Fluid Neutrophils 17 Fluid Lymphocytes 18 Fluid Monocytes 65 Fluid Other Cells 16 Assessment: []52 yo male with metastatic gastric cancer admitted with severe pain and found to have some progressive omental implants as well as new ascites now s/p paracentesis with some improvement, path pending. In terms of his bowels this is concerning for an ileus and we will need to monitor closely. Plan: []1. Stop miralax 2. Try pain control with PO meds today, IV if break through Disp dependent on bowels and path results: home tomorrow at earliest
[2018-02-15] MEDS: Multivitamins/Minerals TAB PO SCH (10:36)
[2018-02-15] MEDS: Thiamine TAB* 100 MG TAB PO SCH (10:36)
[2018-02-15] MEDS: Folic Acid TAB* 1 MG PO SCH (10:36)
[2018-02-15] MEDS ORDERED: LORazepam INJ* 2 MG/ML 1 ML VIAL IV PRN (10:36)
[2018-02-15] MEDS: Pantoprazole IV* 40 MG IV SCH (10:36)
[2018-02-15] MEDS: Polyethylene Glycol 3350* 17 GM PACKET PO SCH (10:44)
[2018-02-15] MEDS: Morphine TAB Extended Release (*) 15 MG TAB.ER PO SCH ×2 (11:21→21:04)
[2018-02-15] MEDS: oxyCODONE TAB* 5 MG TAB PO PRN (15:55)
[2018-02-15] MEDS ORDERED: Al Hydrox/Mg Hydrox/Simet LIQ* 30 ML UDC PO PRN (16:07)
[2018-02-15 21:37] LABS: Urine Appearance Cloudy; Urine Blood Negative (Negative); Urine Color Yellow; Urine Ketones Negative (Negative); Urine Protein Negative (Negative); Urine Specific Gravity 1.027 (1.010-1.030); Urine Urobilinogen Positive (Negative)
[2018-02-16] MEDS: oxyCODONE TAB* 5 MG TAB PO PRN ×2 (00:59→06:23)
[2018-02-16] MEDS: Folic Acid TAB* 1 MG PO SCH (10:00)
[2018-02-16] MEDS: Thiamine TAB* 100 MG TAB PO SCH (10:00)
[2018-02-16] MEDS: Pantoprazole IV* 40 MG IV SCH (10:00)
[2018-02-16] MEDS: Multivitamins/Minerals TAB PO SCH (10:00)
[2018-02-16] MEDS: Morphine TAB Extended Release (*) 15 MG TAB.ER PO SCH (10:00)
--- NOTE | 2018-02-16 11:46 | DS ---
- Discharge Summary Admission Date: 02/13/18 Discharge Date: 02/16/18 Discharge Diagnosis: 1. Advanced Gastric Cancer: appears to have progressed through 5FU/XRT, limited options for further treatment, recommend hospice 2. Ascites: non-malignant, related to anasarca, may consider re-draining next week for comfort 3. Pain: 2/2 malignancy, home on narcotics 4. Severe caloric malnutrition: with cachecia and anasarca, diet as tolerated 5. Ileus: 2/2 advanced disease, at this time he is passing gas and occ. stools therefore we will monitor, reviewed PRN use of miralax Discharge Medications: Medication Instructions Recorded Confirmed Type Omeprazole CAP* [Prilosec CAP* 20 20 mg PO DAILY 07/21/16 02/13/18 History MG] traZODone TAB* [Desyrel TAB*] 50 mg PO BEDTIME PRN 09/22/17 02/13/18 History Polyethylene Glycol 3350* 17 gm PO DAILY PRN #30 packet MDD 02/01/18 02/13/18 Rx [Miralax*] 1 packet LORazepam TAB(*) [Ativan 0.5 MG 0.5 mg PO Q6H PRN 02/13/18 02/13/18 History TAB (*)] Acetaminophen TAB* [Tylenol TAB*] 650 mg PO Q6H PRN tab 02/16/18 Rx Al Hydrox/Mg Hydrox/Simet LIQ* 30 ml PO Q4H PRN udc 02/16/18 Rx [Maalox Plus*] Morphine ORAL.CONC BULK BOT* 10 mg PO Q4H #30 ml MDD 60mg 02/16/18 Rx [Roxanol ORAL.CONC Bottle*] Morphine TAB Extended Rel(*) [Ms 15 mg PO Q12HR #30 tab.er MDD 2 02/16/18 Rx Contin(*)] tabs Ondansetron ODT TAB* [Zofran 4 MG 4 mg PO Q6H PRN tab 02/16/18 Rx Odt TAB*] oxyCODONE ORAL.SOLN* [Oxycodone 10 ml PO Q4HR PRN #0 02/16/18 02/13/18 Rx ORAL.SOLN 5 mg/5 ml *] Hospital Course: Please see admission note for full H&P, however, briefly, Mr. Matos is well known to our service due to his unfortunate diagnosis of advanced gastric cancer. He recently completed salvage 5FU/XRT. On 02/13 he presented to the ER with severe abd. pain and was admitted for work-up. A CT of the abd. and pelvis reviewed dilated bowels without obstruction (concerning for ileus) as well as increased omental implants and new ascites. A paracentesis was completed at the bedside on 02/14, 2 L of straw color fluid was drained. His pain improved following the paracentesis as with use of narcotics. Today path reveals only inflammatory cells without malignancy. He has been passing stools , though liquid and often explosive. His pain is better controlled and he very much would like to go home. Reviewed CT and clinical findings suggestive of advanced disease with limited response to recent therapy. He is notably malnourished and his overall prognosis appears limited, likely measured in months. He is still interested in tx. options though I think this is limited to off label compassionate use of immunotherapy and I am concerned this would impact any further quality of life he may have. He is aware of hospice and understands my recommendation that quality of quantity of life become the focus. He will be discharged home today with narcotics and plan for hospice consultation and f/u with primary oncologist Dr. Pardo on Tuesday 02/20. All questions were answered and Mr. Matos and his family stated good understanding of the plan of care. >40 min spent with >50% face to face counseling
[2018-02-16 13:25] VITALS: BP 125/87
== END 2018-02-16 15:15 | disposition home health service (06) | DRG 240 ==
LOC: ED 15:05 → MED 20:37
PROVIDERS: ADMIT Hospitalist; ATTEND Internal Medicine Hematology & Oncology
PROC: 0D9670Z Drainage of Stomach with Drainage Device, Via Natural or Artificial Opening (ICD-10-PCS; 2018-02-13)
PROC: 0W9G3ZZ Drainage of Peritoneal Cavity, Percutaneous Approach (ICD-10-PCS; principal; 2018-02-14)
DX: C16.9 Malignant neoplasm of stomach, unspecified (principal); E43 Unspecified severe protein-calorie malnutrition; C78.6 Secondary malignant neoplasm of retroperitoneum and peritoneum; R18.8 Other ascites; K56.7 Ileus, unspecified; G89.3 Neoplasm related pain (acute) (chronic); F10.20 Alcohol dependence, uncomplicated; K59.00 Constipation, unspecified; Z68.20 Body mass index [BMI] 20.0-20.9, adult; Z92.21 Personal history of antineoplastic chemotherapy; Z92.3 Personal history of irradiation; Z87.891 Personal history of nicotine dependence; Z80.3 Family history of malignant neoplasm of breast; Z82.49 Family history of ischemic heart disease and other diseases of the circulatory system
CPT/HCPCS: 36415; 71045; 74018; 74177; 80053; 81003; 85025; 85610; 88112; 88305; 89051; 94640; 99231; 99233; 99239; 99284; A9270-GY; J1642; J1644; J2060; J2270; J2405; J3411; Q9967